=== PATIENT | female | born 1990 | race African-American/Black ===

== ENCOUNTER 2017-06-30 10:32 | Emergency (ER) | payer OTHER, SELFPAY ==
[2017-06-30] MEDS ORDERED: Lidocaine 2% w/Epinephrine 1:200K 20 ML VIAL ONE (12:09)
[2017-06-30] MEDS ORDERED: Sulfameth/Trimethoprim DS 800-160mg TAB ONE (12:55)
[2017-06-30] MEDS ORDERED: Cephalexin 500 MG CAP ONE (12:55)
[2017-06-30] MEDS ORDERED: Triple Antibiotic Oint 1 GM Packet ONE (12:55)
== END 2017-06-30 12:58 | disposition home or self-care (01) ==
LOC: MADERS 10:32
DX: L02.411 Cutaneous abscess of right axilla (principal); F17.210 Nicotine dependence, cigarettes, uncomplicated
CPT/HCPCS: 10060; 87070; 87077; 87186; 87205

== ENCOUNTER 2017-11-26 07:38 | Emergency (ER) | payer OTHER ==
[~2017-11-26 07:38] MED LIST: Sodium Chloride 0.9% 1,000 ML BAG ONE; Sodium Chloride 0.9% 100 ML BAG ONE
== END 2017-11-26 08:24 | disposition short-term general hospital (02) ==
LOC: MADERS 07:38
DX: O42.913 Preterm premature rupture of membranes, unspecified as to length of time between rupture and onset of labor, third trimester (principal); O99.333 Smoking (tobacco) complicating pregnancy, third trimester; Z3A.29 29 weeks gestation of pregnancy
CPT/HCPCS: 96365; 96366; J0290; J7050

== ENCOUNTER 2018-02-08 09:33 | Emergency (ER) | payer OTHER ==
[2018-02-08] MEDS ORDERED: Lidocaine 1% w/Epinephrine 1:100K 30 ML VIAL ONE (09:51)
[2018-02-08] MEDS ORDERED: Sodium Chloride Irrig Solution 250 ML BOT ONE (23:29)
== END 2018-02-08 10:24 | disposition home or self-care (01) ==
LOC: MADERS 09:33
DX: L02.412 Cutaneous abscess of left axilla (principal); Z87.891 Personal history of nicotine dependence
CPT/HCPCS: 10061; J2001

== ENCOUNTER 2020-02-24 14:44 | Emergency (ER) | payer OTHER, SELFPAY ==
[2020-02-24] MEDS ORDERED: HYDROcodone/Acetaminophen 5/325 mg Tablet ONE (15:15)
[2020-02-24] MEDS ORDERED: Ibuprofen 800 MG TAB ONE (15:15)
== END 2020-02-24 15:25 | disposition home or self-care (01) ==
LOC: MADERS 14:44
DX: K04.7 Periapical abscess without sinus (principal); Z87.891 Personal history of nicotine dependence
CPT/HCPCS: 99282

== ENCOUNTER 2020-03-07 22:31 | Emergency (ER) | payer SELFPAY ==
[2020-03-08] MEDS ORDERED: traMADol HCl 50 MG TAB ONE (00:34)
[2020-03-08] MEDS ORDERED: Clindamycin 150 MG CAP ONE (00:35)
== END 2020-03-08 00:54 | disposition home or self-care (01) ==
LOC: MADERS 22:31
DX: K04.7 Periapical abscess without sinus (principal); F17.210 Nicotine dependence, cigarettes, uncomplicated
CPT/HCPCS: 99283

== ENCOUNTER 2020-03-22 16:59 | Emergency (ER) | payer SELFPAY ==
[2020-03-23 01:22] LABS: SARS-CoV-2 MS2 Positive; SARS-CoV-2 N Gene Negative; SARS-CoV-2 S Gene Negative; SARS-CoV-2 by NAA Not Detected (NotDetected); SARS-CoV-2 orf1ab Negative
== END 2020-03-22 17:28 | disposition home or self-care (01) ==
LOC: MADERS 16:59
DX: B34.9 Viral infection, unspecified (principal); Z20.828 Contact with and (suspected) exposure to other viral communicable diseases; F17.210 Nicotine dependence, cigarettes, uncomplicated; Z71.6 Tobacco abuse counseling
CPT/HCPCS: 87635; 99406; U0003

== ENCOUNTER 2021-03-24 14:19 | Emergency (ER) | payer SELFPAY ==
[2021-03-24] MEDS ORDERED: Lidocaine 1% w/Epinephrine 1:100K 20 ML VIAL ONE (15:28)
[2021-03-24] MEDS ORDERED: Cephalexin 250 MG CAP ONE (16:09)
[2021-03-24] MEDS ORDERED: Sulfameth/Trimethoprim DS 800-160mg TAB ONE (16:09)
== END 2021-03-24 16:10 | disposition home or self-care (01) ==
LOC: MADERS 14:19
DX: L02.411 Cutaneous abscess of right axilla (principal); L03.111 Cellulitis of right axilla; F17.210 Nicotine dependence, cigarettes, uncomplicated
CPT/HCPCS: 10060

== ENCOUNTER 2021-12-21 21:40 | Emergency (ER) | payer SELFPAY ==
[2021-12-21] MEDS ORDERED: Lactated Ringer's 1,000 ML ONE (22:10)
[2021-12-21] MEDS ORDERED: Ondansetron PF 4 MG/2 ML Vial ONE (22:10)
[2021-12-21] MEDS ORDERED: Ketorolac Tromethamine 30 MG/ML VIAL ONE (22:10)
[2021-12-21 22:26] LABS: #Basophils 0.1 thou/uL (0.0-0.2); #Lymphocytes 1.4 thou/uL (1.20-3.40); #Monocytes 1.4 thou/uL (0.11-0.59); #Neutrophils 14.7 thou/uL (1.40-6.50); %Basophils 0.8 % (0.0-1.0); %Lymphocytes 8.1 % (21.0-51.0); %Monocytes 7.7 % (0.0-10.0); %Neutrophils 83.4 % (42.0-75.0); Hemoglobin 12.1 g/dL (12.0-16.0); Mean Corpuscular HGB CONC 32.2 g/dL (32.0-36.0); Mean Corpuscular Hemoglobin 31.2 pg (27.0-31.0); Mean Corpuscular Volume 96.8 fL (78.0-98.0); Mean Platelet Volume 8.8 fL (7.4-10.4); Platelet Count 167 thou/uL (130-400); RBC Distribution Width 10.8 % (11.5-14.5); Red Blood Cell (RBC) Count 3.88 mill/uL (4.20-5.40); White Blood Cell (WBC) Count 17.6 thou/uL (4.8-10.8)
[2021-12-21 22:48] LABS: ALT (SGPT) 7 U/L (8-55); AST (SGOT) 15 U/L (5-34); Albumin 4.1 g/dL (3.5-5.0); Alkaline Phosphatase 53 U/L (40-110); Anion Gap 15 mmol/L (10-20); BUN (Urea Nitrogen) 8 mg/dL (7.0-18.7); Bilirubin, Total 1.3 mg/dL (0.2-1.2); CK (CPK) 271 U/L (29-168); Calc. Creatinine Clearance 0 mL/min (70-130); Calcium 8.9 mg/dL (7.8-10.44); Carbon Dioxide 18 mmol/L (22-29); Chloride 105 mmol/L (98-107); Estimated GFR 73; Globulin 3.7 g/dL (2.4-3.5); Glucose 116 mg/dL (70-105); Lipase 19 U/L (8-78); Magnesium 1.7 mg/dL (1.6-2.6); Protein, Total 7.8 g/dL (6.0-8.3); Sodium 135 mmol/L (136-145)
[2021-12-21 22:52] LABS: Bilirubin Negative (Negative); Blood, Urine Large (Negative); Clarity Turbid (Clear); Glucose, Urine (Dipstick) Negative (Negative); Ketone, Urine Negative (Negative); Leukocyte Moderate (Negative); Nitrite Positive (Negative); Protein, Urine (Dipstick) 100 mg/dL (Neg-Trace); Specific Gravity, Urine 1.025 (1.005-1.030); pH, Urine 5.5 (5.0-9.0)
[2021-12-21 22:55] LABS: Pregnancy Test - Urine (BHCG) Negative (Negative); Pregu Control Background? CLEAR/WHITE (CLR/WHITE); Pregu Control Bar Appear? YES (CONTROL BAR); Specific Gravity 1.025 (1.002-1.036)
[2021-12-21 22:59] LABS: Bacteria/HPF 1+ HPF (None Seen); RBC/HPF 0-3 HPF (0-3); Transitional Epithelial 0-3 HPF (None Seen); WBC/HPF Greater Than 50 HPF (0-3)
[2021-12-21] MEDS ORDERED: cefTRIAXone\\ROCEPHIN 2 GM VIAL ONE (23:14)
[2021-12-21] MEDS ORDERED: Sodium Chloride 0.9% 100 ML ONE (23:15)
== END 2021-12-21 23:59 | disposition home or self-care (01) ==
LOC: MADERS 21:40
DX: N10 Acute pyelonephritis (principal); E86.0 Dehydration; E87.6 Hypokalemia; F17.210 Nicotine dependence, cigarettes, uncomplicated
CPT/HCPCS: 80053; 81003; 81015; 81025; 82550; 83605; 83690; 83735; 85025; 87040; 87077; 87086; 87186; 93005; 94760; 96361; 96365; 96375; J0696; J1885; J2405; J3490; J7120

== ENCOUNTER 2023-02-16 15:55 | Emergency (ER) | payer SELFPAY ==
[2023-02-16 16:20] LABS: Pregnancy Test - Urine (BHCG) Negative (Negative); Pregu Control Background? CLEAR/WHITE (CLR/WHITE); Pregu Control Bar Appear? YES (CONTROL BAR)
[2023-02-16 16:21] LABS: Bilirubin Small (Negative); Blood, Urine Trace (Negative); Glucose, Urine (Dipstick) Negative (Negative); Ketone, Urine Negative (Negative); Leukocyte Negative (Negative); Nitrite Negative (Negative); Protein, Urine (Dipstick) Trace mg/dL (Neg-Trace); Urobilinogen 0.2 mg/dL (Less than 2); pH, Urine 5.5 (5.0-9.0)
[2023-02-16 16:22] LABS: Clarity Hazy (Clear)
[2023-02-16 16:26] LABS: Bacteria/HPF Rare-Few HPF (None Seen); CAUTI Indications for Culture Dysuria,urgency,freq; Mucous/LPF 3+ LPF (<2+); RBC/HPF 0-3 HPF (0-3)
[2023-02-16 16:27] LABS: Urine Culture Reflex No No
== END 2023-02-16 16:43 | disposition home or self-care (01) ==
LOC: MADERS 15:55
DX: R10.9 Unspecified abdominal pain (principal)
CPT/HCPCS: 81001; 81025; 99284